=== PATIENT | male | born 1985 | race Caucasian/White ===

== ENCOUNTER 2024-10-14 07:18 | Emergency (ER) | payer BC, MEDICAID ==
[~2024-10-14] VITALS: Ht 188 cm; Wt 117.9 kg
[2024-10-14 07:24] VITALS: BP 126/96; TEMP 98.6; O2SAT 96
[2024-10-14] MEDS ORDERED: IBUP-1490 PO (07:44)
== END 2024-10-14 07:51 | disposition home or self-care (01) ==
LOC: ER 07:35
DX: R07.81 Pleurodynia (principal)